=== PATIENT | female | born 1980 | race Asian ===

== ENCOUNTER 2021-09-30 12:25 | Emergency (ER) | payer OTHER, SELFPAY ==
[~2021-09-30] VITALS: Ht 165.1 cm; Wt 54.4 kg
[2021-09-30 12:25] VITALS: BP_SYST 136
--- NOTE | 2021-09-30 12:25 | NUR ---
PT WAITING IN AMBULANCE BAY FOR BED ASSIGNMENT. TRIAGED AND AWAITING AVAILABLE ER BED AND NURSE
--- NOTE | 2021-09-30 12:51 | NUR ---
BROUGHT IN TO BED #7 AND PLACED IN BED. REPORT GIVEN TO SHERLYN
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
--- NOTE | 2021-09-30 13:15 | NUR ---
ER at bedside examining patient.
--- NOTE | 2021-09-30 13:26 | NUR ---
Patient transported to radiology via gurney, accompanied by staff.
[2021-09-30] MEDS: KETOROLAC TROMETHAMINE 30 MG VIAL IM ONE (13:46)
--- NOTE | 2021-09-30 14:45 | NUR ---
Pt. to HW bed
--- NOTE | 2021-09-30 16:16 | NUR ---
Patient given written and verbal discharge instructions and verbalizes understanding. ER Dr. Patel discussed with patient the results and treatment provided. Patient in stable condition. ID arm band removed. Rx of Ford, Motrin and flexeril given. Patient educated on pain management and to follow up with PMD. Pain Scale 3. Opportunity for questions provided and answered. Medication side effect fact sheet provided.
[2021-09-30 16:18] VITALS: BP_SYST 132
== END 2021-09-30 16:16 | disposition home or self-care (01) ==
LOC: SED 12:25
DX: S39.012A Strain of muscle, fascia and tendon of lower back, initial encounter (principal); S16.1XXA Strain of muscle, fascia and tendon at neck level, initial encounter; V49.49XA Driver injured in collision with other motor vehicles in traffic accident, initial encounter; Y93.89 Activity, other specified; Y92.89 Other specified places as the place of occurrence of the external cause; Y99.8 Other external cause status
CPT/HCPCS: 36415; 72125; 72131; 76376; 84703; 96372; 99284; J1885